=== PATIENT | male | born 1985 | race Caucasian/White ===

== ENCOUNTER 2022-09-27 15:28 | Emergency (ER) | payer BC, SELFPAY ==
[2022-09-27 15:38] VITALS: BP 192/96; PULSE 76; RESP 18; TEMP 36.3; O2SAT 98; BMI 57.0
--- NOTE | 2022-09-27 16:24 | CRLHL7_ITS ---
For Patients: As a result of the Century Cures Act, medical imaging exams and procedure reports are released immediately into your electronic medical record. You may view this report before your referring provider. If you have questions, please contact your health care provider. INDICATION: Acute on chronic pain. TECHNIQUE: Right knee 3 views. COMPARISON: None. FINDINGS: No acute fracture or dislocation. The patella is normally aligned. There is moderate narrowing of the medial compartment and lateral patellofemoral compartment. Mild patellar spurring. No significant knee joint effusion. Soft tissues are unremarkable. IMPRESSION: 1. No acute findings. 2. Degenerative changes of the knee. Dictated by Aleida Becerra MD @ 09/27/2022 5:27:04 PM (Electronically Signed)
--- NOTE | 2022-09-27 16:27 | ED_ITS ---
HPI - General Adult General Date Seen: 09/27/22 Chief complaint: Extremity Pain/Injury, Lower Stated complaint: Right Knee pain and pressure Time Seen by Provider: 09/27/22 16:16 Source: patient History of Present Illness HPI narrative: Patient is a 37-year-old male here for evaluation of right knee pain. Tells me that he has had pain on and off in the right knee for many years, he says he had an injury to the tendons a number of years ago which left the knee susceptible to hyper extension. Since that time, he has had pain with walking and with going up and down stairs. 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 He is significantly overweight, which he knows contributes to his symptoms as well. Over the past several weeks, he says that he has been having more sharp pain in the knee, which is what prompted him to come in today. Sharper pains are in the lateral knee, and he notices them mostly when he turns to the left. He says it feels like something is catching. He has not had any sensation of giving way. He denies any specific trauma. He says it is difficult to tell if there is any swelling because he is ?a big emelina?. There has not been any redness, he denies any fevers or systemic complaints. He does not have any radiating pain, numbness or weakness. He has been taking 800 mg of ibuprofen and 500 mg of Tylenol once daily. Related Data Home Medications Medication Instructions Recorded Confirmed No Known Home Medications 09/27/22 09/27/22 Allergies Allergy/AdvReac Type Severity Reaction Status Date / Time cefaclor [From [facility]] Allergy Verified 09/27/22 15:41 Review of Systems Status of ROS: Reports: 6 or more systems reviewed and unremarkable except as noted in History and below PFSH PFS Social History Smoking Status: Unknown if ever smoked Do you use any of these nicotine containing products: None Second hand tobacco smoke exposure: No How often do you have a drink containing alcohol: 2-4 times a month How often do you have six or more drinks on one occasion: Never AUDIT-C Alcohol total score: 2 Non-prescribed substance use: denies use service: No Exam Const: Vital Signs, click to edit/add: Vital Signs - 24 hr 09/27/22 15:38 09/27/22 17:40 Temperature 97.3 F L Pulse Rate [Right Pulse Oximeter] 76 72 Respiratory Rate 18 18 Blood Pressure [Ri ght Upper Arm] 192/96 H 133/70 Pulse Oximetry 98 97 Oxygen Delivery Me thod Room Air Room Air Course Course Hospital Course: X-rays of the right knee by my review is negative for acute findings. He has a little bit of narrowing of the joint space medially. Final radiology report is the same. Also notable, patient's blood pressure is significantly elevated on arrival here. Recommend recheck with primary care. It did come down significantly on recheck, but given how high it was when he got here would suggest that he be seen in clinic to follow that up. With regard to the knee, he requested an Avelino wrap and that was provided. I recommended that we try conservative therapy with ibuprofen 3 times daily rather than a single time for the next few days to week or 2. Thereafter, orthopedic follow-up to see if further therapy such as an inj ection might be helpful, or if other imaging is recommended, depending on availability. Vital Signs Vital signs: Initial Vital Signs Temperature 97.3 F L 09/27/22 15:38 Temperature Source Temporal Artery Scan 09/27/22 15:38 Pulse Rate 76 09/27/22 15:38 Pulse Rhythm 09/27/22 15:38 Respiratory Rate 18 09/27/22 15:38 Blood Pressure 192/96 H 09/27/22 15:38 Blood Pressure Mean 128 09/27/22 15:38 Blood Pressure Position Sitting 09/27/22 15:38 Pulse Oximetry 98 09/27/22 15:38 Oxygen Delivery Method 09/27/22 15:38 Vital Signs Temperature 97.3 F L 09/27/22 15:38 Pulse Rate 76 09/27/22 15:38 Respiratory Rate 18 09/27/22 15:38 Blood Pressure 192/96 H 09/27/22 15:38 Pulse Oximetry 98 09/27/22 15:38 Oxygen Delivery Method 09/27/22 15:38 Temperature 97.3 F L 09/27/22 15:38 Pulse Rate 72 09/27/22 17:40 Respiratory Rate 18 09/27/22 17:40 Blood Pressure 133/70 09/27/22 17:40 Pulse Oximetry 97 09/27/22 17:40 Oxygen Delivery Method 09/27/22 17:40 Discharge Plan Discharge Clinical Impression: Knee pain, right Patient Disposition: Home, Self-Care Condition: Stable Instructions: Knee Pain (ED) Additional Instructions: Ibuprofen 400 mg plus Tylenol 1000 mg 3 times daily with food for the next 1-2 weeks. Orthopedic follow-up for re-evaluation. Your blood pressure is high today, 192/96. This should be re-evaluated by primary care in the next week or 2 as well. If it remains significantly elevated this may need treatment. Prescriptions: No Action No Known Home Medications Stand Alone Forms: [employer] Info Instructions
[2022-09-27 17:40] VITALS: BP 133/70; PULSE 72; RESP 18; O2SAT 97
== END 2022-09-27 17:53 | disposition home or self-care (01) ==
PROVIDERS: Emergency Provider Emergency Medicine
DX: M25.561 Pain in right knee (principal); Z88.1 Allergy status to other antibiotic agents
CPT/HCPCS: 73562; 99282; 99283; 99284